=== PATIENT | male | born 1980 | race African-American/Black ===

== ENCOUNTER 2021-04-26 13:40 | Emergency (ER) | payer MEDICAID, OTHER ==
[~2021-04-26] VITALS: Ht 180.3 cm; Wt 108.0 kg
[2021-04-26 15:09] VITALS: BP 152/96
== END 2021-04-26 21:27 | disposition home or self-care (01) ==
LOC: ER 13:40
DX: M62.838 Other muscle spasm (principal); F17.200 Nicotine dependence, unspecified, uncomplicated
CPT/HCPCS: 99281